=== PATIENT | female | born 1970 | race Caucasian/White ===

== ENCOUNTER 2022-10-24 20:12 | Emergency (ER) | payer SELFPAY ==
[~2022-10-24] VITALS: Ht 165.1 cm; Wt 77.0 kg
[2022-10-24 20:17] VITALS: BP 145/76; O2SAT 99
[2022-10-25] MEDS ORDERED: IBUP-2028 MT (00:16)
[2022-10-25 00:31] VITALS: PULSE 76; RESP 16; TEMP 98.6
== END 2022-10-25 00:32 | disposition home or self-care (01) ==
LOC: ER 21:28
DX: M25.572 Pain in left ankle and joints of left foot (principal); W18.39XA Other fall on same level, initial encounter; Y93.89 Activity, other specified; Y92.89 Other specified places as the place of occurrence of the external cause; Y99.8 Other external cause status
CPT/HCPCS: 72100; 72170; 73110; 73562; 73610; 81025; 99284